=== PATIENT | male | born 1945 | race Two or more races ===

== ENCOUNTER 2018-12-19 10:50 | Outpatient (CLI) | payer OTHER ==
[~2018-12-19 10:50] MED LIST: ASA81 MG PO; LIPITOR20 MG PO; METFORMIN HCL500 M1 PO; NABUMETONE500 MG PO; PERCOCET 5-3251 EACH PO; PROTONIX40 MG PO; TRAM1TAB98 PO
== END 2018-12-19 10:56 | disposition home or self-care (01) ==
LOC: RAD 501 10:50
DX: M79.671 Pain in right foot (principal)

== ENCOUNTER 2019-07-03 10:50 | Outpatient (CLI) | payer OTHER | END 2019-07-03 11:00 | disposition home or self-care (01) | LOC: NUCLEAR 10:50 | DX: I49.9 Cardiac arrhythmia, unspecified (principal) ==

== ENCOUNTER 2021-05-21 08:00 | Outpatient (CLI) | payer OTHER | END 2021-05-21 08:30 | disposition home or self-care (01) | LOC: PPH VACUNA 08:00 | DX: Z23 Encounter for immunization (principal) ==

== ENCOUNTER 2021-12-21 08:00 | Outpatient (CLI) | payer OTHER | END 2021-12-21 08:30 | disposition home or self-care (01) | LOC: PPH VACUNA 08:00 | PROVIDERS: ATTEND Emergency Medicine Pediatric Emergency Medicine | DX: Z23 Encounter for immunization (principal) ==

== ENCOUNTER 2022-03-01 11:20 | Outpatient (CLI) | payer OTHER | END 2022-03-01 12:19 | disposition home or self-care (01) | LOC: SONOGRAMA 11:20 | PROVIDERS: ATTEND Internal Medicine | DX: N18.2 Chronic kidney disease, stage 2 (mild) (principal) ==

== ENCOUNTER 2022-08-31 10:32 | Outpatient (CLI) | payer OTHER | END 2022-08-31 10:40 | disposition home or self-care (01) | LOC: SONOGRAMA 10:32 | PROVIDERS: ATTEND Internal Medicine | DX: N18.31 Chronic kidney disease, stage 3a (principal) ==

== ENCOUNTER 2022-11-09 09:14 | Outpatient (CLI) | payer OTHER | END 2022-11-09 09:53 | disposition home or self-care (01) | LOC: SONOGRAMA 09:14 | PROVIDERS: ATTEND Physical Medicine & Rehabilitation | DX: M79.641 Pain in right hand (principal); M79.642 Pain in left hand ==

== ENCOUNTER 2023-03-23 09:44 | Outpatient (CLI) | payer OTHER | END 2023-03-23 09:56 | disposition home or self-care (01) | LOC: RAD 09:44 | PROVIDERS: ATTEND Physical Medicine & Rehabilitation | DX: M41.9 Scoliosis, unspecified (principal); M54.59 Other low back pain ==

== ENCOUNTER 2023-03-23 11:26 | Outpatient (CLI) | payer OTHER | END 2023-03-23 11:30 | disposition home or self-care (01) | LOC: RAD 11:26 | PROVIDERS: ATTEND Ophthalmology | DX: H25.011 Cortical age-related cataract, right eye (principal); Z98.41 Cataract extraction status, right eye ==

== ENCOUNTER 2023-05-08 14:10 | Outpatient (CLI) | payer OTHER | END 2023-05-08 14:11 | disposition home or self-care (01) | LOC: EKG 14:10 | PROVIDERS: ATTEND Ophthalmology | DX: I11.9 Hypertensive heart disease without heart failure (principal) ==

== ENCOUNTER 2024-11-07 07:49 | Outpatient (CLI) | payer OTHER | END 2024-11-07 07:58 | disposition home or self-care (01) | LOC: RAD 07:49 | PROVIDERS: ATTEND Physical Medicine & Rehabilitation | DX: M41.9 Scoliosis, unspecified (principal); M54.6 Pain in thoracic spine; M54.59 Other low back pain ==

== ENCOUNTER 2025-04-02 16:13 | Outpatient (CLI) | payer OTHER | END 2025-04-02 16:18 | disposition home or self-care (01) | LOC: TOM 16:13 | PROVIDERS: ATTEND Pulmonary Function Technologist | DX: R91.1 Solitary pulmonary nodule (principal); J44.9 Chronic obstructive pulmonary disease, unspecified ==

== ENCOUNTER 2025-06-16 15:44 | Outpatient (CLI) | payer OTHER | END 2025-06-16 15:47 | disposition home or self-care (01) | LOC: RAD 15:44 | PROVIDERS: ATTEND Physical Medicine & Rehabilitation | DX: M25.511 Pain in right shoulder (principal) ==